=== PATIENT | male | born 1970 | race African-American/Black ===

== ENCOUNTER 2023-10-30 22:49 | Emergency (ER) | payer MEDICARE, MEDICAID ==
[~2023-10-30] VITALS: Ht 182.9 cm; Wt 83.0 kg
[2023-10-30 22:50] VITALS: O2SAT 99
[2023-10-30] MEDS: SODIUM CHLORIDE 0.9% 1,000 ML IV ONE (23:41)
[2023-10-31] LABS: BASOPHILS % 0.7 % (0.0-2.0); DIFFERENTIAL COMMENT 0; EOSINOPHILS % 2.6 % (0.0-5.0); HEMATOCRIT. 33.5 % (42.0-52.0); HEMOGLOBIN. 11.6 g/dL (14.0-18.0); LYMPHOCYTES % 34.9 % (20.0-50.0); MEAN CORPUSCULAR HEMOGLOBIN 35.4 pg (28.0-32.0); MEAN CORPUSCULAR HGB CONC 34.8 g/dL (31.0-37.0); MEAN CORPUSCULAR VOLUME 101.8 fL (80.0-94.0); MEAN PLATELET VOLUME 6.6 fl (7.4-10.4); NEUTROPHILS % 48.8 % (40.0-76.0); PLATELET 181 x1000/uL (130-400); RED BLOOD CELL COUNT 3.29 mill/uL (4.7-6.1); RED CELL DISTRIBUTION WIDTH 12.2 % (11.6-14.6); WHITE BLOOD COUNT 3.9 x1000/uL (4.5-11.0)
[2023-10-31 00:09] LABS: CHLORIDE 103 mEq/L (98-107); POTASSIUM 3.3 mEq/L (3.5-5.1); SODIUM 137 mEq/L (136-145)
[2023-10-31 00:10] LABS: CALCIUM 8.7 mg/dL (8.7-10.4); CARBON DIOXIDE 23 mEq/L (21-32)
[2023-10-31 00:15] LABS: CREATININE 0.7 mg/dL (0.6-1.3); GLUCOSE 113 mg/dL (70-105); UREA NITROGEN BLOOD 8 mg/dL (9-23)
[2023-10-31 00:17] LABS: ALANINE AMINOTRANSFERASE 25 IU/L (10-49); ALBUMIN 3.8 g/dL (3.2-4.8); ASPARTATE AMINOTRANSFERASE 63 IU/L (<34); BILIRUBIN TOTAL 0.4 mg/dL (0.1-1.0)
[2023-10-31 00:18] LABS: PROTEIN TOTAL 6.7 g/dL (6.0-8.3)
[2023-10-31 01:47] LABS: TROPONIN I HIGH SENSITIVITY 4 ng/L (3.0-53)
[2023-10-31 01:52] LABS: TROPONIN I HIGH SENSITIVITY < 4 ng/L (3.0-53)
[2023-10-31 02:38] VITALS: BP 131/58; PULSE 80; RESP 20; TEMP 98.1
== END 2023-10-31 03:15 | disposition home or self-care (01) ==
LOC: ER 22:49
DX: I95.9 Hypotension, unspecified (principal); I10 Essential (primary) hypertension
CPT/HCPCS: 99284; 96361; 96360; 71045; 80053; 82962; 85025; 84484 ×2; 36415 ×2; J7030